=== PATIENT | female | born 1950 | race Caucasian/White ===

== ENCOUNTER → 2017-02-22 | Outpatient (CLI) | payer MEDICARE, OTHER ==
[2017-02-22 15:28] LABS: CREATININE FOR GFR 1.36 MG/DL (0.55-1.02); GLOMERULAR FILTRATION RATE 41.5 (>45)
== END ==
LOC: M LAB 14:34
PROVIDERS: ATTEND Otolaryngology
DX: H90.3 Sensorineural hearing loss, bilateral (principal)

== ENCOUNTER → 2017-02-28 | Outpatient (CLI) | payer MEDICARE, OTHER ==
[~2017-02-28] MED LIST: PROHANCE 279.3MG/ML 5ML VIAL (A9576) As Ordered ONE
--- NOTE | 2017-02-28 23:18 | REP ---
MRI brain and posterior fossa without and with IV contrast: History: Bilateral hearing loss, left greater than right. Gadolinium enhancement dose: 8.6 ml of intravenous ProHance, half-dose protocol. Technique: Axial and sagittal imaging planes are utilized for T1 and T2-weighted scans. Sequences include spin-echo, fast spin echo, FLAIR, and diffusion weighted sequences. Thin section posterior fossa images are included with T1 and T2-weighted scans. Pre and postcontrast images are acquired. MRI findings: No bony calvarial lesion is seen. No intraorbital abnormality is seen. The internal auditory canals are normal and symmetric. Seventh and eighth nerves are well seen within them and appear normal. No CP angle cistern mass or other extra-axial mass lesion is seen. There is no MR evidence of significant paranasal sinus disease. Diffusion weighted scans show no evidence to suggest acute ischemia or other cause of restricted diffusion. Postcontrast images show enhancement of normal vessels. No abnormal contrast enhancement is appreciated. Thin section postcontrast images show no abnormal intercanalicular or extra canalicular enhancement in or about either internal auditory canal. There are multiple T2 hyperintense areas in the periventricular and subcortical white matter of the supratentorial brain bilaterally. These are nonspecific and may reflect small vessel atherosclerotic changes. Demyelinating disease is a possibility as well but considered less likely. Impression: Multiple T2 hyperintensities most compatible with small vessel atherosclerotic changes. Otherwise negative brain and IAC MRI study with pre and post gadolinium enhanced imaging. Signed by Chong Ramos MD 03/01/2017 08:11 A
== END ==
LOC: M RAD 14:00
PROVIDERS: ATTEND Otolaryngology
DX: H90.3 Sensorineural hearing loss, bilateral (principal); I25.10 Atherosclerotic heart disease of native coronary artery without angina pectoris; R90.89 Other abnormal findings on diagnostic imaging of central nervous system
CPT/HCPCS: 70553; A9576

== ENCOUNTER → 2017-03-24 | Outpatient (REF) | payer MEDICARE, OTHER | LOC: M SFHCLERA 16:15 | DX: R39.9 Unspecified symptoms and signs involving the genitourinary system (principal); Z79.899 Other long term (current) drug therapy | CPT/HCPCS: 87086 ==

== ENCOUNTER → 2017-05-28 | Outpatient (CLI) | payer MEDICARE, OTHER | LOC: M CARPUL 09:27 | DX: G45.9 Transient cerebral ischemic attack, unspecified (principal) | CPT/HCPCS: 93306 ==

== ENCOUNTER → 2018-03-25 | Outpatient (CLI) | payer MEDICARE, OTHER ==
--- NOTE | 2018-03-26 10:27 | REP ---
MRI hand without contrast: History: Palmar fascial fibromatosis, Dupuytren's contracture. Evaluate lesion in middle finger. Technique: Markers are placed above and below the lesion in the middle finger pointed out by the patient. Axial, coronal and sagittal imaging planes are utilized. T1 and T2-weighted scans were obtained with and without fat saturation. MRI findings: Cortical and medullary bone signal intensity are normal. There are subcortical cysts formed in the distal end of the second and third metacarpals which are small. No significant fluid collection is seen. There is a 3 mm area of fluid at the articulation between the capitate and the lesser multangular at the level of the carpal tunnel but there is no visible compression. Sagittal T2 STIR and spare images through the fingers demonstrate fusiform swelling in the flexor tendon complex along the volar aspect of the proximal phalanx of the long finger compared to the index and ring fingers. On axial T2-weighted images there is subtle thickening and irregularity. The dorsal to palmar thickness of the flexor mechanism at mid proximal phalanx level is 7 mm along the long finger and 5 mm in the comparable region of the index and ring fingers. No discontinuity is seen. No retraction is noted. No joint effusion is noted. Extensor tendon mechanism is unremarkable. Impression: Fusiform swelling of the flexor tendon complex along the palmar aspect of the proximal phalanx of the long finger. This is compatible with fibrosis involving the tendon. No abnormal fluid collection is seen here. Otherwise negative. Electronically Signed by Chong Ramos MD 03/26/2018 10:47 A
== END ==
LOC: M RAD 17:57
PROVIDERS: ATTEND Orthopaedic Surgery Sports Medicine
DX: M72.0 Palmar fascial fibromatosis [Dupuytren] (principal)

== ENCOUNTER → 2019-11-08 | Outpatient (CLI) | payer MEDICARE, OTHER ==
[~2019-11-08] MED LIST changes: +ATOR40TA75 PO; +CELE20TA PO; +CLON0.5T17 PO; +CVS1CAP2 PO; +JARD1TAB PO; +LEVO125T4 PO; +METF500T13 PO; +MULTTAB24 PO; +MYRB25TA PO; +PANT20TA6 PO; -PROHANCE 279.3MG/ML 5ML VIAL (A9576) As Ordered ONE; +TELM1TAB4 PO; +ZETI10TA16 PO
== END ==
LOC: M LABSMTC 10:35
PROVIDERS: ATTEND Anesthesiology
DX: Z01.812 Encounter for preprocedural laboratory examination (principal); Z20.828 Contact with and (suspected) exposure to other viral communicable diseases
CPT/HCPCS: C9803; U0003

== ENCOUNTER 2019-11-13 08:06 | Day surgery (SDC) | payer MEDICARE, OTHER ==
[~2019-11-13] VITALS: Ht 170.2 cm; Wt 55.8 kg
[~2019-11-13 08:06] MED LIST changes: -ATOR40TA75 PO; -CELE20TA PO; -CLON0.5T17 PO; -CVS1CAP2 PO; -JARD1TAB PO; -LEVO125T4 PO; -METF500T13 PO; -MULTTAB24 PO; -MYRB25TA PO; +NS 1,000 ML IV ONE; -PANT20TA6 PO; -TELM1TAB4 PO; -ZETI10TA16 PO
[2019-11-13] MEDS ORDERED: CLON0.5T17 PO (08:45)
[2019-11-13] MEDS ORDERED: CVS1CAP2 PO (08:46)
[2019-11-13] MEDS ORDERED: CELE20TA PO (08:46)
[2019-11-13] MEDS ORDERED: PANT20TA6 PO (08:47)
[2019-11-13] MEDS ORDERED: MYRB25TA PO (08:47)
[2019-11-13] MEDS ORDERED: JARD1TAB PO (08:47)
[2019-11-13] MEDS ORDERED: ATOR40TA75 PO (08:48)
[2019-11-13] MEDS ORDERED: ZETI10TA16 PO (08:49)
[2019-11-13] MEDS ORDERED: METF500T13 PO (08:50)
[2019-11-13] MEDS ORDERED: TELM1TAB4 PO (08:51)
[2019-11-13] MEDS ORDERED: MULTTAB24 PO (08:52)
[2019-11-13] MEDS ORDERED: LEVO125T4 PO (08:53)
[2019-11-13] MEDS ORDERED: propofoL 200 MG/20 ML VIAL As Ordered ONE (10:04)
[2019-11-13] MEDS ORDERED: LIDOCAINE 2% 100MG/5ML SDV (FOR ANES.) As Ordered ONE (10:05)
[2019-11-13 10:40] VITALS: BP 168/77
--- NOTE | 2019-11-19 11:37 | ROOR ---
Patient Name: Allegra Sofia Procedure Date: 11/13/2019 9:16 AM Date of : 1950 Age: 69 Room: [facility] Gender: Female Note Status: Finalized Procedure: Colonoscopy Indications: High risk colon cancer surveillance: Personal history of colonic polyps Providers: Yair LUCERO MD Referring MD: Payton Miguel Requesting Provider: Medicines: Monitored Anesthesia Care Complications: No immediate complications. Procedure: Pre-Anesthesia Assessment: - The heart rate, respiratory rate, oxygen saturations, blood pressure, adequacy of pulmonary ventilation, and response to care were monitored throughout the procedure. The Colonoscope was introduced through the anus and advanced to the cecum, identified by appendiceal orifice and ileocecal valve. The colonoscopy was performed without difficulty. The patient tolerated the procedure well. The quality of the bowel preparation was good. Findings: The perianal and digital rectal examinations were normal. Multiple medium-mouthed diverticula were found in the sigmoid colon and descending colon. Internal hemorrhoids were found during retroflexion. The hemorrhoids were moderate. The exam was otherwise without abnormality on direct and retroflexion views. Impression: - Diverticulosis in the sigmoid colon and in the descending colon. - Internal hemorrhoids. - The examination was otherwise normal on direct and retroflexion views. - No specimens collected. Recommendation: - Repeat colonoscopy in 5 years for surveillance. Yair LUCERO MD 11/13/2019 10:21:10 AM Number of Addenda: 0 Note Initiated On: 11/13/2019 9:16 AM Estimated Blood Loss: Estimated blood loss: none.
== END 2019-11-13 11:01 | disposition home or self-care (01) ==
LOC: M OPP 08:06
PROVIDERS: ATTEND Internal Medicine Gastroenterology
DX: Z12.11 Encounter for screening for malignant neoplasm of colon (principal); Z86.010 Personal history of colon polyps; K64.8 Other hemorrhoids; K57.30 Diverticulosis of large intestine without perforation or abscess without bleeding; E11.9 Type 2 diabetes mellitus without complications; I10 Essential (primary) hypertension; E78.5 Hyperlipidemia, unspecified; E03.9 Hypothyroidism, unspecified; K21.9 Gastro-esophageal reflux disease without esophagitis; Z79.899 Other long term (current) drug therapy; Z88.0 Allergy status to penicillin

== ENCOUNTER → 2021-10-03 | Outpatient (CLI) | payer MEDICARE, OTHER ==
[~2021-10-03] MED LIST changes: +ACET-897 PO; +ATOR40TA75 PO; +CELE20TA PO; +CELE40TA PO; +CLON0.5T17 PO; +CVS1CAP2 PO; +DOCU-153 PO; +FAMO20TA5 PO; +JARD1TAB PO; +LEVO125T4 PO; +LEVO137T2 PO; +METF500T13 PO; +MULTTAB24 PO; +MYRB25TA PO; +MYRB50TA PO; -NS 1,000 ML IV ONE; +PANT20TA6 PO; +PANT40TA29 PO; +TELM1TAB16 PO; +VITA100093 PO; +ZETI10TA16 PO
== END ==
LOC: M LABSMTC 11:03
PROVIDERS: ATTEND Anesthesiology
DX: Z01.812 Encounter for preprocedural laboratory examination (principal)

== ENCOUNTER 2021-10-07 06:46 | Day surgery (SDC) | payer MEDICARE, OTHER ==
[~2021-10-07] VITALS: Ht 170.2 cm; Wt 76.6 kg
[~2021-10-07 06:46] MED LIST changes: +NS 1,000 ML IV ONE
[2021-10-07] MEDS ORDERED: SIMETHICONE 40MG/0.6ML DROPS 30ML As Ordered ONE (08:06)
[2021-10-07] MEDS ORDERED: LIDOCAINE 2% 100MG/5ML SDV (FOR ANES.) As Ordered ONE (08:08)
[2021-10-07] MEDS ORDERED: propofoL 200 MG/20 ML VIAL As Ordered ONE ×2 (08:08→08:33)
[2021-10-07] MEDS ORDERED: hydrALAZINE 20MG/ML 1ML VIAL (J0360 PER 20MG) As Ordered ONE (08:14)
[2021-10-07 09:02] VITALS: BP 151/76
== END 2021-10-07 09:06 | disposition home or self-care (01) ==
LOC: M OPP 06:46
PROVIDERS: ATTEND Internal Medicine Gastroenterology
DX: D12.0 Benign neoplasm of cecum (principal); K63.5 Polyp of colon; K57.30 Diverticulosis of large intestine without perforation or abscess without bleeding; K64.8 Other hemorrhoids; K92.1 Melena; E11.9 Type 2 diabetes mellitus without complications; I10 Essential (primary) hypertension; E03.9 Hypothyroidism, unspecified; E78.00 Pure hypercholesterolemia, unspecified; K21.00 Gastro-esophageal reflux disease with esophagitis, without bleeding; K92.2 Gastrointestinal hemorrhage, unspecified; F32.9 Major depressive disorder, single episode, unspecified; F41.9 Anxiety disorder, unspecified; Z79.84 Long term (current) use of oral hypoglycemic drugs; Z79.899 Other long term (current) drug therapy; Z88.0 Allergy status to penicillin; Z88.1 Allergy status to other antibiotic agents; Z91.018 Allergy to other foods

== ENCOUNTER → 2023-04-24 | Outpatient (CLI) | payer MEDICARE, OTHER ==
[~2023-04-24] MED LIST changes: -DOCU-153 PO; +EZET10TA58 PO; -NS 1,000 ML IV ONE; +PROHANCE 279.3MG/ML 15ML VIAL ONE; +STOO100C30 PO; -ZETI10TA16 PO
== END ==
LOC: M PLAIMG 12:51
PROVIDERS: ATTEND Physician Assistant Medical
DX: D49.0 Neoplasm of unspecified behavior of digestive system (principal)
CPT/HCPCS: 74183; A9576

== ENCOUNTER → 2024-04-16 | Outpatient (CLI) | payer MEDICARE, OTHER | LOC: M PLAIMG 08:43 | PROVIDERS: ATTEND Physician Assistant Medical | DX: D49.0 Neoplasm of unspecified behavior of digestive system (principal) | CPT/HCPCS: 74183; A9576 ==

== ENCOUNTER → 2024-05-22 | Outpatient (CLI) | payer MEDICARE, OTHER ==
[~2024-05-22] MED LIST changes: +AMLO2.5T3 PO; +CITA40TA7 PO; +CLON0.25 PO; +EZET10TA21 PO; +FERR325T82 PO; +GABA-1172 PO; +ISOVUE-370 76% 100ML VIAL As Ordered ONE; +JARD1TAB3 PO; +LEVO112T2 PO; +OMEP40CA5 PO; +PROBCAP14 PO; -PROHANCE 279.3MG/ML 15ML VIAL ONE; +ROSU5TAB49 PO
== END ==
LOC: M RAD 13:57
PROVIDERS: ATTEND Physician Assistant Medical
DX: R63.4 Abnormal weight loss (principal)
CPT/HCPCS: 74177; Q9967

== ENCOUNTER 2024-05-26 10:18 | Day surgery (SDC) | payer MEDICARE, OTHER ==
[~2024-05-26] VITALS: Ht 170.2 cm; Wt 66.5 kg
[~2024-05-26 10:18] MED LIST changes: -ISOVUE-370 76% 100ML VIAL As Ordered ONE
[2024-05-26 12:42] VITALS: TEMP 96.7
[2024-05-26 13:11] VITALS: BP 167/84; O2SAT 97
== END 2024-05-26 13:18 | disposition home or self-care (01) ==
LOC: M OPP 10:18
PROVIDERS: ATTEND Internal Medicine Gastroenterology
DX: K57.30 Diverticulosis of large intestine without perforation or abscess without bleeding (principal); K64.8 Other hemorrhoids; R63.4 Abnormal weight loss; K59.00 Constipation, unspecified; K31.7 Polyp of stomach and duodenum; K44.9 Diaphragmatic hernia without obstruction or gangrene; R12 Heartburn; R10.84 Generalized abdominal pain; Z88.0 Allergy status to penicillin; Z88.8 Allergy status to other drugs, medicaments and biological substances; Z79.84 Long term (current) use of oral hypoglycemic drugs; Z79.899 Other long term (current) drug therapy